=== PATIENT | female | born 1995 ===

== ENCOUNTER 2017-01-24 18:26 | Emergency (ER) | payer OTHER ==
[2017-01-24 18:29] VITALS: BMI 24.1
[2017-01-24 18:33] VITALS: RESP 18; TEMP 97.4
--- NOTE | 2017-01-24 19:33 | C.PDOC ---
History Of Present Illness 21yo female complaining of intermittent bilateral lower back pain present since November which she reports is sometimes radiating to her legs. She denies any bladder or bowel dysfunction, saddle anesthesia, numbness, tingling or weakness in her extremities. She states the pain is worse with movement. Patient denies taking any medications for her symptoms. She also denies any fever, chills, urinary symptoms. Patient offers no other medical complaints. Time Seen by Provider: 01/24/17 19:02 Chief Complaint (Nursing): Back Pain History Per: Patient History/Exam Limitations: no limitations Onset/Duration Of Symptoms: Days, Sudden Onset Current Symptoms Are (Timing): Still Present Quality Of Discomfort: "Pain" Past Medical History Reviewed: Historical Data, Nursing Documentation, Vital Signs Vital Signs: Last Vital Signs Temp 97.4 F L 01/24/17 18:30 Pulse 61 01/24/17 19:42 Resp 18 01/24/17 19:42 BP 112/65 01/24/17 19:42 Pulse Ox 100 01/24/17 20:08 - Medical History PMH: No Chronic Diseases Surgical History: No Surg Hx Family History: States: No Known Family Hx - Social History Hx Alcohol Use: No Hx Substance Use: No - Immunization History Hx Tetanus Toxoid Vaccination: No Hx Influenza Vaccination: No Hx Pneumococcal Vaccination: No Review Of Systems Constitutional: Negative for: Fever, Chills Genitourinary: Negative for: Dysuria, Frequency, Incontinence, Hematuria Musculoskeletal: Positive for: Back Pain, Leg Pain. Negative for: Other ( saddle anesthesia) Physical Exam - Physical Exam Appears: Non-toxic, No Acute Distress Neck: Supple Gastrointestinal/Abdominal: Normal Exam, Bowel Sounds, Soft, No Tenderness Back: No Vertebral Tenderness, Paraspinal Tenderness (mild bilateral para- lumbar tenderness) Extremity: No Pedal Edema, No Calf Tenderness, Other (5/5 motor strength bilateral extremities; 5/5 sensations of extremities; negative Aquilino's sign) ED Course And Treatment O2 Sat by Pulse Oximetry: 100 (RA) Pulse Ox Interpretation: Normal Medical Decision Making Medical Decision Making: pt with intermittent bilateral low back pain since November, normal labs at physical in Dec 2016 , no abdominal pain and no urinary symptoms, no fevers, no trauma. pt sts pain worse with movement. will tx for muscle pain. Disposition Counseled Patient/Family Regarding: Diagnosis, Need For Followup, Rx Given - Disposition Referrals: Basim Larios MD [Staff Provider] - Disposition: HOME/ ROUTINE Disposition Time: 19:38 Condition: STABLE Additional Instructions: Avoid heavy lifting. Follow up with Dr Larios in a few days. Take Ibuprofen for pain if needed. Return to ER for any worsening pain, fever, numbness or tingling. Prescriptions: Ibuprofen [Motrin] 600 mg PO TID #30 tab Instructions: Chronic Back Pain (ED) Forms: [facility] (German), General Discharge Instructions - Clinical Impression Clinical Impression: Low back pain - PA / [employer] / Resident Statement MD/DO has reviewed & agrees with the documentation as recorded. - Scribe Statement The provider has reviewed the documentation as recorded by the Hilda Garcia Provider Attestation All medical record entries made by the Hilda were at my direction and personally dictated by me. I have reviewed the chart and agree that the record accurately reflects my personal performance of the history, physical exam, medical decision making, and the department course for this patient. I have also personally directed, reviewed, and agree with the discharge instructions and disposition.
[2017-01-24 19:42] VITALS: BP 112/65; PULSE 61
[2017-01-24 20:06] VITALS: O2SAT 100
== END 2017-01-24 19:44 | disposition home or self-care (01) ==
LOC: C.ER 18:26
DX: M54.5 Low back pain (principal)

== ENCOUNTER 2017-04-26 22:00 | Emergency (ER) | payer OTHER ==
[2017-04-26 22:00] VITALS: BMI 24.1
[2017-04-26 22:22] VITALS: RESP 20; O2SAT 100
[2017-04-26 23:05] LABS: BASO # 0.1 K/uL (0.0-0.2); BASO % 0.8 % (0.0-2.0); EOS # 0.4 K/uL (0.0-0.7); HEMOGLOBIN 14.1 g/dL (11.0-16.0); MEAN CELL VOLUME 88.3 fL (81.0-99.0); MEAN CORPUSCULAR HEMOGLOBIN 30.6 pg (27.0-31.0); MEAN CORPUSCULAR HGB CONC 34.7 g/dL (33.0-37.0); MEAN PLATELET VOLUME 9.6 fL (7.2-11.7); MONO # 0.4 K/uL (0.0-0.8); MONO % 6.2 % (0.0-10.0); NEUT # 3.1 K/uL (1.8-7.0); RBC 4.61 Mil/uL (3.80-5.20); RED CELL DISTRIBUTION WIDTH 12.6 % (11.5-14.5)
[2017-04-26 23:09] LABS: SQUAMOUS EPITHIAL 1 /hpf (0-5); URINE BACTERIA FEW (<OCC); URINE BILIRUBIN NEGATIVE (NEGATIVE); URINE BLOOD NEGATIVE (NEGATIVE); URINE CLARITY Clear (Clear); URINE COLOR Straw (YELLOW); URINE GLUCOSE (UA) NORMAL (Normal); URINE LEUKOCYTE ESTERASE NEG Leu/uL (Negative); URINE NITRATE NEGATIVE (NEGATIVE); URINE PROTEIN NEGATIVE (NEGATIVE); URINE UROBILINOGEN NORMAL mg/dL (0.2-1.0)
[2017-04-26 23:10] LABS: HCG,QUALITATIVE URINE NEGATIVE (NEGATIVE)
[2017-04-26 23:17] LABS: ALB/GLOB RATIO 1.4 (1.0-2.1); ALBUMIN 4.4 g/dL (3.5-5.0); ALT/SGPT 30 U/L (9-52); AST/SGOT 14 U/L (14-36); BLOOD UREA NITROGEN 10 mg/dL (7-17); CALCIUM 8.7 mg/dl (8.6-10.4); GFR AFRICAN-AMERICAN > 60; GFR NON-AFRICAN AMERICAN > 60
--- NOTE | 2017-04-26 23:22 | C.PDOC ---
History Of Present Illness 21 year old female presents to the ED for evaluation of lower back and abdominal pain that she has had since November. Patient reports that the pain comes and goes and seems to bee related to her menstrual cycle. She had gone to see her PMD once in January where she got an "X-Ray" done but she does not know the results. Patient states that 10 days ago she felt the pain was worsening. She is not able to localize her pain and mostly complaints of diffuse back and abdominal pain. Patient reports she came today because "she wants to get to the bottom if it". Patient denies nausea, vomit, diarrhea, fever, chills, vaginal bleeding, vaginal discharge. Time Seen by Provider: 04/26/17 22:25 Chief Complaint (Nursing): Abdominal Pain History Per: Patient History/Exam Limitations: no limitations Onset/Duration Of Symptoms: Intermittent Episodes Current Symptoms Are (Timing): Still Present Location Of Pain/Discomfort: Diffuse Radiation Of Pain To:: Back Quality Of Discomfort: "Pain" Associated Symptoms: denies: Fever, Chills, Nausea, Vomiting, Diarrhea, Urinary Symptoms Alleviating Factors: None Recent travel outside of the [place]: No Additional History Per: Patient Abnormal Vaginal Bleeding: No Past Medical History Reviewed: Historical Data, Nursing Documentation, Vital Signs Vital Signs: Last Vital Signs Temp 97.6 F 04/26/17 22:17 Pulse 90 04/26/17 22:17 Resp 20 04/26/17 22:17 BP 130/82 04/26/17 22:17 Pulse Ox 100 04/26/17 23:26 - Medical History PMH: No Chronic Diseases Surgical History: No Surg Hx Family History: States: Unknown Family Hx - Social History Hx Alcohol Use: No Hx Substance Use: No - Immunization History Hx Tetanus Toxoid Vaccination: No Hx Influenza Vaccination: No Hx Pneumococcal Vaccination: No Review Of Systems Constitutional: Negative for: Fever, Chills Cardiovascular: Negative for: Chest Pain Respiratory: Negative for: Cough, Shortness of Breath Gastrointestinal: Positive for: Abdominal Pain. Negative for: Nausea, Vomiting , Diarrhea Musculoskeletal: Positive for: Back Pain Skin: Negative for: Rash Neurological: Negative for: Weakness, Numbness Physical Exam - Physical Exam Appears: Well, Non-toxic, No Acute Distress Skin: Normal Color, Warm, Dry Head: Atraumatic, Normacephalic Eye(s): bilateral: Normal Inspection Nose: No Discharge, No Deformity Oral Mucosa: Moist Neck: Normal ROM, Supple Chest: Symmetrical Cardiovascular: Rhythm Regular, No Murmur Respiratory: Normal Breath Sounds, No Rales, No Rhonchi, No Wheezing Gastrointestinal/Abdominal: Soft, No Tenderness, No Guarding, No Rebound Back: Normal Inspection, No CVA Tenderness, No Vertebral Tenderness, No Decreased ROM, No Muscle Spasm, No Paraspinal Tenderness Extremity: Normal ROM, No Tenderness, No Pedal Edema, No Calf Tenderness, No Deformity, No Swelling Neurological/Psych: Oriented x3, Normal Speech, Normal Cognition Gait: Steady ED Course And Treatment - Laboratory Results Result Diagrams: 04/26/17 23:02 04/26/17 23:02 Lab Interpretation: No Acute Changes O2 Sat by Pulse Oximetry: 100 (On RA) Pulse Ox Interpretation: Normal Reevaluation Time: 23:41 Reassessment Condition: Improved (after PO Tylenol. Patient is in no distress.) Medical Decision Making Medical Decision Making: Impression : lower back and abdominal pain Plan: * Labs * Tylenol 650 mg PO * UA Disposition Counseled Patient/Family Regarding: Studies Performed, Diagnosis, Need For Followup - Disposition Referrals: Zeferino Perez [Staff Provider] - Disposition: HOME/ ROUTINE Disposition Time: 23:42 Condition: IMPROVED Instructions: Abdominal Pain (ED) Forms: [facility] (Kazakh) - Clinical Impression Clinical Impression: Abdominal pain, Low back pain - Scribe Statement The provider has reviewed the documentation as recorded by the Scribe Owen Savage All medical record entries made by the Scribe were at my direction and personally dictated by me. I have reviewed the chart and agree that the record accurately reflects my personal performance of the history, physical exam, medical decision making, and the department course for this patient. I have also personally directed, reviewed, and agree with the discharge instructions and disposition.
[2017-04-27 00:04] VITALS: BP 112/73; PULSE 77; TEMP 98.2
== END 2017-04-27 00:04 | disposition home or self-care (01) ==
LOC: C.ER 22:00
DX: M54.5 Low back pain (principal); R10.9 Unspecified abdominal pain